=== PATIENT | male | born 1965 | race Caucasian/White ===

== ENCOUNTER 2025-01-19 07:47 | Emergency (ER) | payer OTHER, SELFPAY ==
--- NOTE | 2025-01-19 07:53 | HMH.EDGENADL ---
Discharge Plan Disposition Patient Disposition: Home, Self-Care Referrals Follow up/Referrals: Reece Swenson DO [Staff Physician] - See instructions Jairo Madera MD [Primary Care Provider] - See instructions Clinical Impressions Clinical Impression: Sprain and strain of wrist Instructions Patient Instructions: Sprain Print Language Print Language: Swedish Discharge ED Provider: Liz Davey General Adult HPI General Chief complaint: Extremity Injury, Upper Stated complaint: WC 01/19/24 1530, fell, inj rt wrist Time Seen by Provider: 01/19/25 07:53 History of Present Illness HPI narrative: Patient is a 59-year-old with past medical history significant for hypertension hyperlipidemia and depression presents to the emergency department with right wrist pain. Patient was walking on the sidewalk and tripped and fell off a curb landed on outstretched bilateral palms. Patient complaining of right wrist pain. Took ibuprofen without improvement of symptoms. Did not hit head did not lose consciousness no blood thinner use. Related Data Allergies Allergy/AdvReac Type Severity Reaction Status Date / Time No Known Allergies Allergy Verified 01/19/25 07:58 [facility] Disclaimer: The information contained in this section may have been updated after the patient was seen, as this information can be updated by other users. Social History Smoking Status: Never smoker alcohol intake: never current occupational status: employed Travel in the last 8 weeks: None ROS Obtained: Yes All systems reviewed & no additional complaints except as documented Physical Exam General General appearance: alert and in no apparent distress Head Head exam: atraumatic and normocephalic Eye Eye exam: Present PERRL and EOMI Neck Neck exam: Present full ROM; Absent tenderness Respiratory Respiratory exam: Absent respiratory distress Cardiovascular Cardiovascular exam: Present regular rate and normal rhythm Abdominal Exam Abdominal exam: Absent distention or tenderness Extremities Exam Extremities exam: Present normal inspection, full ROM, tenderness (ulnar aspect right wrist) and other (neurovascularly intact right hand); Absent joint swelling Neurological Exam Neurological exam: Present alert Medical Decision Making Medical Records Screening: Per USPSTF and CDC recommendations, given the prevalence of disease in our region, it is our hospital?s policy to screen for HIV and viral Hepatitis for all patients aged 18 and over and those with ongoing risk factors. Marlon Inquiry Pt receiving controlled substance: No Vital Signs: 01/19/25 07:54 01/19/25 07:55 Temperature 98.0 F Temperature Source Oral Pulse Rate 58 L Pulse Rate [Radial] 68 Respiratory Rate 16 Blood Pressure 140/81 Blood Pressure [Left Arm] 140/81 Blood Pressure Mean [Left Arm] 100 Blood Pressure Source [Left Arm] Automatic Cuff Blood Pressure Position [Left Arm] Sitting 02 Sat by Pulse Oximetry 93 L 97 Oxygen Delivery Method Room Air Room Air Orders (Tests/Meds): ORDERS Category Date Time Status XR forearm RT 2V Stat Exams 01/19/25 07:58 Completed XR hand RT min 3V Stat Exams 01/19/25 07:58 Completed XR wrist RT min 3V Stat Exams 01/19/25 07:58 Completed Medical Decision Narrative: In summary, this 59-year-old male presents to the emergency department today with right wrist pain. On initial evaluation patient is hemodynamically stable saturating properly on room air afebrile in no acute distress. Differential diagnosis includes but is not limited to neurovascular injury acute fracture dislocation sprain. Based on these concerns, I ordered right hand wrist forearm x-rays. XR personally interpreted demonstrates no acute fracture or dislocation On reassessment patient's pain is controlled amenable to discharge with outpatient follow-up with PCP or orthopedic surgery if pain persists of the right wrist. Of note, social determinants of health include limited access to primary care Critical Care Critical Care Time Critical Care Time: No
[2025-01-19 07:54] VITALS: BP 140/81; PULSE 58; O2SAT 93
[2025-01-19 07:55] VITALS: BP 140/81; PULSE 68; RESP 16; TEMP 36.7; O2SAT 97; BMI 34.2
--- NOTE | 2025-01-19 07:58 | XR_ITS ---
FINAL REPORT CLINICAL HISTORY: fall, pain COMPARISON: None FINDINGS: AP, oblique, and lateral views of the right wrist were obtained. There is no prior exam for comparison. There is no acute fracture or dislocation. The joint spaces are preserved. The soft tissues are normal. IMPRESSION: No acute osseous abnormality of the right wrist. If pain persists, MR is recommended. Reviewed, Interpreted and Dictated by Edie Quezada MD Transcribed by Adela Cox Authenticated and [facility]
--- NOTE | 2025-01-19 07:58 | XR_ITS ---
FINAL REPORT CLINICAL HISTORY: fall, pain COMPARISON: None FINDINGS: AP and lateral views of the right forearm are obtained. There is no prior exam for comparison. There is no acute osseous abnormality of the right forearm. The wrist and elbow are intact. The soft tissues appear normal. IMPRESSION: No acute osseous abnormality of the right forearm. Reviewed, Interpreted and Dictated by Edie Quezada MD Transcribed by Adela Cox Authenticated and [facility]
--- NOTE | 2025-01-19 07:58 | XR_ITS ---
FINAL REPORT CLINICAL HISTORY: fall, pain COMPARISON: None FINDINGS: AP, lateral and oblique views of the right hand were obtained. There is no prior exam for comparison. There is no acute fracture or dislocation. The joint spaces are preserved. The soft tissues are normal. IMPRESSION: No acute osseous abnormality of the right hand. Reviewed, Interpreted and Dictated by Edie Quezada MD Transcribed by Adela Cox Authenticated and [facility]
[2025-01-19 09:40] VITALS: BP 140/81; PULSE 68; RESP 16; TEMP 36.7; O2SAT 97
== END 2025-01-19 09:41 | disposition home or self-care (01) ==
PROVIDERS: Emergency Provider Student in an Organized Health Care Education/Training Program; PCP Internal Medicine
DX: S63.501A Unspecified sprain of right wrist, initial encounter (principal); S66.911A Strain of unspecified muscle, fascia and tendon at wrist and hand level, right hand, initial encounter; W10.1XXA Fall (on)(from) sidewalk curb, initial encounter
CPT/HCPCS: 73090; 73110; 73130; 99283

== ENCOUNTER 2025-09-21 12:36 | Emergency (ER) | payer OTHER, SELFPAY ==
[2025-09-21 12:43] VITALS: BP 158/87; PULSE 78; RESP 15; TEMP 37; O2SAT 98; BMI 34.8
--- NOTE | 2025-09-21 12:48 | ED_ITS ---
<Statement entered by Kenyon Bo MD - 09/21/25 14:47> Kenyon Bo MD: I was consulted by the LATRELL, and we discussed the complexity of the problems being addressed. I approve the treatment and management plan for this patient's care in the emergency department, thus performing a substantive portion of the medical decision making. Discharge Plan Disposition Patient Disposition: Home, Self-Care Condition: Good Referrals Follow up/Referrals: Jairo Madera MD [Primary Care Provider, Medical] - See instructions Activity Restrictions/Add. Instructions Additional Instructions/Restrictions: Please return to the emergency department with any worsening signs or symptoms. Keep the wound clean dry and covered, please return to the emergency department family physician's office or urgent care facility in the next 7 to 10 days for removal of your sutures. Clinical Impressions Clinical Impression: Laceration of left little finger Instructions Patient Instructions: DI for Laceration Repair Print Language Print Language: Estonian Discharge ED Provider: Kenyon Bo General Adult HPI General Chief complaint: Wound/Laceration Stated complaint: WC, laceration on Lt pinky Time Seen by Provider: 09/21/25 12:48 Mode of Arrival: Ambulatory Source of Information: Patient Description of Symptoms (Recalled from ER Triage Doc. by RN): patient states he cut his left pinky on sheet metal today while working. History of Present Illness HPI narrative: 60-year-old male presents to the emergency department with a left fifth digit laceration to the lateral aspect of the finger, patient states that he was working with sheet-metal , when he sat some sheet-metal down and he sliced my finger , patient denies any other acute injury, denies any crush type injury, has good range of motion, denies any numbness or tingling, has no other acute symptomatology. Patient states tetanus prophylaxis up-to-date. Patient denies any alcohol tobacco or drug use, patient has other past medical history consistent with PONCE/MDD and hypertension. Initial triage vitals are unremarkable. Please note that above description of symptoms, in this electronic medical record under categorization of recalled from ER triage doctor by RN are reflective of an initial nursing assessment, however, is not reflective of my full history and physical exam that was personally taken and clarified. Consequentially, this preceding description of symptoms, which may include the patient's categorized chief complaint in the EMR, do not reflect my personal clinical impression, and the ultimate description of history of present illness and patient stated complaints should be deferred to this section of the note. Unless stated otherwise or congruent with this section of the note, additional signs, symptoms, or incongruence should be interpreted as inaccurate with my clinical impression. Onset (ago): hour(s) Related Data Allergies Allergy/AdvReac Type Severity Reaction Status Date / Time No Known Allergies Allergy Verified 01/19/25 07:58 [facility] Disclaimer: The information contained in this section may have been updated after the patient was seen, as this information can be updated by other users. Social History (Updated 01/19/25 @ 09:38 by Liz Davey MD) Smoking Status: Current every day smoker alcohol intake: never current occupational status: employed Travel in the last 8 weeks?: None Have you lived/traveled outside US in past 30 days?: No Contact w/someone who lives/traveled outside US past 30 days?: No Exposure to someone with infectious disease in past 14 days?: No Do you have a fever (greater than 100.4 F or 38 C)?: No Have you tested positive for COVID-19?: No Exposed to someone with COVID-19 in past 14 days?: No Do you have a sore throat?: No Do you have a cough?: No Do you have any weakness?: No Do you have any diarrhea?: No Are you experiencing any unusual bleeding?: No Do you have any muscle aches/pain?: No Do you have any abdominal pain?: No Are you experiencing loss of taste or smell?: No ROS Obtained: Yes All systems reviewed & no additional complaints except as documented Physical Exam General General appearance: alert and in no apparent distress Head Head exam: atraumatic and normocephalic Eye Eye exam: Present PERRL and EOMI ENT ENT exam: Present mucous membranes moist Neck Neck exam: Present normal inspection Chest Chest inspection: Present normal inspection and symmetric chest wall rise Respiratory Respiratory exam: Present normal lung sounds bilaterally; Absent respiratory distress Cardiovascular Cardiovascular exam: Present regular rate and normal rhythm Abdominal Exam Abdominal exam: Present soft; Absent tenderness Extremities Exam Extremities exam: Present normal inspection and other (Moves extremities to command, neurovascular intact, no obvious open fractures or traumatic dislocation or deformities.) Neurological Exam Neurological exam: Present alert and oriented X3 Psychiatric Psychiatric exam: Present normal affect Skin Skin exam: Present warm, dry and other (There is a small around 1 to 1.5 cm laceration flap around the lateral aspect of the patient's left fifth digit.) Medical Decision Making Medical Records Medical records reviewed: Yes I reviewed the patient's medical records. Screening: Per USPSTF and CDC recommendations, given the prevalence of disease in our region, it is our hospital?s policy to screen for HIV and viral Hepatitis for all patients aged 18 and over and those with ongoing risk factors. Marlon Inquiry Pt receiving controlled substance: No Marlon was queried for this patient: No Vital Signs: 09/21/25 12:43 Temperature 98.6 F Temperature Source Oral Pulse Rate [Right Radial] 78 Respiratory Rate 15 Blood Pressure [Right Arm] 158/87 H Blood Pressure Mean [Right Arm] 110 Blood Pressure Source [Right Arm] Automatic Cuff Blood Pressure Position [Right Arm] Supine 02 Sat by Pulse Oximetry 98 Oxygen Delivery Method Room Air Orders (Tests/Meds): ED MEDICATIONS Discontinued Medications Generic Name Dose Route Start Last Admin Trade Name Freq PRN Reason Stop Dose Admin Lidocaine HCl 10 ml 09/21/25 12:53 09/21/25 13:09 Lidocaine 1% 10ml Mdv IJ 09/21/25 12:54 10 ml ONCE ONE Administration ORDERS Category Date Time Status HIV Combo Stat Lab 09/21/25 12:47 Ordered Hepatitis C Ab Qual. W/ RFX Stat Lab 09/21/25 12:47 Ordered Medical Decision Narrative: 60-year-old male presents to the emergency department for a left finger laceration differential diagnose include but not limited to, laceration, abrasion, among others. I discussed this patient's case with the attending physician Dr. Bo After copious irrigation of the patient's wound, with Betadine and normal saline, I utilized digital nerve block with 1% lidocaine with 5 mL, patient tolerated procedure well, I then placed 450 nonabsorbable sutures in the patient's wound. Wound margins revitalize patient tolerated procedure well no apparent complications. Patient was given strict ED return precaution, return to the emergency department or urgent care or family doctor to have sutures removed in 7 to 10 days. Patient voiced understanding and agreement with the current treatment plan/discharge plan generalized wound precautions given at discharge Procedures Laceration Laceration 1: Site: hand and upper extremity Side (If applicable): left Size (cm): 1.5 Description: flap Depth: simple, single layer Local Anesthetic: lidocaine 1% Amount of anesthesia used (mL): 5 Pre-repair: irrigated extensively, deep structures intact and wound margins revised Skin layer closed with: nylon Size (cm): 5-0 Number of sutures: 4 Technique: simple, interrupted Nerve Block Nerve Block 1: Local Anesthetic: lidocaine 1% Amount of anesthesia used (mL): 5 Side: Left Nerve Blocks: digital Procedure Successful: Yes Patient Tolerated Procedure: well and no complications Complications: none Critical Care Critical Care Time Critical Care Time: No
[2025-09-21] MEDS: LIDOCAINE 1% 10ML MDV 10 ML IJ (13:09)
--- OUTSIDE RECORDS SUMMARY | 2025-09-21 13:33 | XMS_ITS | Encounter Summary ---
Author Organization [employer] ([place], [place], [place], [place], [place]) Address [address] [place] [address] Care Team Providers Care Headline Writer Name Role Phone Unavailable Primary Care Provider Unavailabl e Encounter Details Date Type Department Care Team (Late st Contact Info) Description 05/31/2019 Transcribed Document [facility] [place] [address] ProviderPia MD [address] [place] [id number] Social History Tobacco Use Types Packs/Day Years Used Date Smoking Tobacco: Never Assessed Sex and Gender Information Value Date Recorded Sex Assigned at Not on file Legal Sex Male 6:36 PM CDT Gender Identity Not on file Sexual Orientation Not on file documented as of this encounter Miscellaneous Notes * Cerner Conversion Note - Pia ProviderMD - 05/31/2019 12:56 PM CDT [facility] Main OR PACU Summary Primary Physician: JASS YOUNGBLOOD MD-URO Finalized Date/Time: 05/31/19 14:09:01 Pt. Name: PETER CORDERO /Sex: 1965 Male Med Rec #: [id number] Physician: JASS YOUNGBLOOD MD-URO Financial #: [id number] Pt. Type: O Room/Bed: Admit/Disch: 05/31/19 09:50:00 - Institution: [facility] Main OR PACU Case Times Entry 1 In PACU I 05/31/19 13:26:00 Ready for PACU 05/31/19 13:56:00 Discharge Discharge from PACU 05/31/19 13:56:00 I Last Modified By: GIGI PERDOMO RN 05/31/19 13:58:04 [facility] Main OR PACU Case Times Audit 05/31/19 13:58:04 Grinder Set Up Operator Jig: MICK Modifier: MICK <+> 1 Ready for PACU Discharge <+> 1 Discharge from PACU I [facility] Main OR PACU Acuity Entry 1 Start Time 05/31/19 13:26:00 Stop Time 05/31/19 13:56:00 Acuity Level [facility] PACU Acuity I Last Modified By: GIGI PERDOMO RN 05/31/19 13:39:13 [facility] Main OR PACU Acuity Audit 05/31/19 13:58:12 Grinder Set Up Operator Jig: MICK Modifier: MICK <+> 1 Stop Time Finalized By: GIGI PERDOMO, RN Document Signatures Signed By: GIGI PERDOMO RN 05/31/19 14:09 Electronically signed by Ryann [facility] Conversion Inside Contractor Sales Cerner at 01/24/2023 3:46 PM CDT documented in this encounter Plan of Treatment Not on file documented as of this encounter Visit Diagnoses Not on filedocumented in this encounter
--- OUTSIDE RECORDS SUMMARY | 2025-09-21 13:33 | XMS_ITS | Referral Summary ---
Author Organization [employer] ([place], [place], [place], [place], [place]) Address [address] [place] [address] Care Team Providers Care Ornamental Painter Name Role Phone Unavailable Primary Care Provider Unavailabl e Social History Tobacco Use Types Packs/Day Years Used Date Smoking Tobacco: Never Assessed Sex and Gender Information Value Date Recorded Sex Assigned at Not on file Legal Sex Male 6:36 PM CDT Gender Identity Not on file Sexual Orientation Not on file Plan of Treatment Not on file
--- OUTSIDE RECORDS SUMMARY | 2025-09-21 13:33 | XMS_ITS | Clinical Summary ---
Author Organization [employer] ([place], [place], [place], [place], [place]) Address [address] [place] [address] Care Team Providers Care Underground Bolting Machine Operator Name Role Phone Unavailable Primary Care Provider [...]
--- OUTSIDE RECORDS SUMMARY | 2025-09-21 13:33 | XMS_ITS | Encounter Summary ---
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 Role Phone Unavailable Primary Care Provider Unavailabl e Encounter Details Date Type Department Care Team (Late st Contact Info) Description 05/31/2019 Transcribed Document [facility] [place] [address] ProviderPia MD [address] [place] [address] [id number] Social History Tobacco Use Types Packs/Day Years Used Date Smoking Tobacco: Never Assessed Sex and Gender Information Value Date Recorded Sex Assigned at Not on file Legal Sex Male 6:36 PM CDT Gender Identity Not on file Sexual Orientation Not on file documented as of this encounter Miscellaneous Notes * Cerner Conversion Note - Pia ProviderMD - 05/31/2019 2:32 PM CDT [place] [id number] PETER CORDERO :1965 Visit Time:05/31/2019 What to do next Your Diagnosis Hydrocele, unspecified, Hydrocele, unspecified Instructions From Your Care Team No strenuous activity. May shower in 3 days. Resume usual diet as tolerated. Keflex and Carolina...follow up in 1 to 2 weeks remove dressing in 48 hours. Wear scrotal support at all times Discharge Follow Up Instructions: Meds: Keflex and Carolina...follow up in 1 to 2 weeks Activity: Discharge Activity: No strenuous activities Diet: Discharge Diet: Resume usual diet as tolerated Wound/Incision Care Instructions: remove dressing in 48 hours. Wear scrotal support at all times Showering/Bathing Instructions: May shower in 3 days Driving Restriction: Do Not Drive Follow-Up Appointments Follow Up with JASS YOUNGBLOOD MD-URO When 06/09/2019 01:45 PM EDT Where: [address] [place] [address]- Medications What How Much When Instructions Next Dose losartan Every Day Take your medications faithfully. Do NOT skip medication. Do NOT stop taking medications without the direction of a physician. Carry a list of your medications with you at all times, and take this medication list with you to your first follow up visit. Report any side effects. Avoid herbal remedies unless discussed with your physician. As part of your treatment plan, your physician may have prescribed a limited course of a controlled substance. This medication may be given to help people with moderate or severe pain or for other medical conditions, but there are risks involved with treatment. Common side effects may include nausea, constipation, drowsiness, sweating, itching, dry mouth, and rash. More serious side effects may include cognitive and motor impairment, like problems with thinking, concentrating, alertness, and movement (e.g. slowed reflexes), and driving and operating heavy machinery can be dangerous. It is important for you to talk to your physician if you have these side effects or questions. These controlled substances can produce physical dependence and be habit-forming if taken for an extended period of time, which means that the body has gotten used to them and may experience withdrawal symptoms if they are abruptly stopped. Withdrawal symptoms can include runny nose, sweating, goose bumps, diarrhea, abdominal cramping, rapid heartbeat, difficulty sleeping, and nervousness. Please dispose of unused and medications per pharmacy guidance. Education Materials General Anesthesia, Adult, Care After This sheet gives you information about how to care for yourself after your procedure. Your health care provider may also give you more specific instructions. If you have problems or questions, contact your health care provider. What can I expect after the procedure? After the procedure, the following side effects are common: ??? Pain or discomfort at the IV site. ??? Nausea. ??? Vomiting. ??? Sore throat. ??? Trouble concentrating. ??? Feeling cold or chills. ??? Weak or tired. ??? Sleepiness and fatigue. ??? Soreness and body aches. These side effects can affect parts of the body that were not involved in surgery. Follow these instructions at home: For at least 24 hours after the procedure: ??? Have a responsible adult stay with you. It is important to have someone help care for you until you are awake and alert. ??? Rest as needed. ??? Do not: ? Participate in activities in which you could fall or become injured. ? Drive. ? Use heavy machinery. ? Drink alcohol. ? Take sleeping pills or medicines that cause drowsiness. ? Make important decisions or sign legal documents. ? Take care of children on your own. Eating and drinking ??? Follow any instructions from your health care provider about eating or drinking restrictions. ??? When you feel hungry, start by eating small amounts of foods that are soft and easy to digest (bland), such as toast. Gradually return to your regular diet. ??? Drink enough fluid to keep your urine pale yellow. ??? If you vomit, rehydrate by drinking water, juice, or clear broth. General instructions ??? If you have sleep apnea, surgery and certain medicines can increase your risk for breathing problems. Follow instructions from your health care provider about wearing your sleep device: ? Anytime you are sleeping, including during daytime naps. ? While taking prescription pain medicines, sleeping medicines, or medicines that make you drowsy. ??? Return to your normal activities as told by your health care provider. Ask your health care provider what activities are safe for you. ??? Take mozd-bzb-owftvwn and prescription medicines only as told by your health care provider. ??? If you smoke, do not smoke without supervision. ??? Keep all follow-up visits as told by your health care provider. This is important. Contact a health care provider if: ??? You have nausea or vomiting that does not get better with medicine. ??? You cannot eat or drink without vomiting. ??? You have pain that does not get better with medicine. ??? You are unable to pass urine. ??? You develop a skin rash. ??? You have a fever. ??? You have redness around your IV site that gets worse. Get help right away if: ??? You have difficulty breathing. ??? You have chest pain. ??? You have blood in your urine or stool, or you vomit blood. Summary ??? After the procedure, it is common to have a sore throat or nausea. It is also common to feel tired. ??? Have a responsible adult stay with you for the first 24 hours after general anesthesia. It is important to have someone help care for you until you are awake and alert. ??? When you feel hungry, start by eating small amounts of foods that are soft and easy to digest (bland), such as toast. Gradually return to your regular diet. ??? Drink enough fluid to keep your urine pale yellow. ??? Return to your normal activities as told by your health care provider. Ask your health care provider what activities are safe for you. This information is not intended to replace advice given to you by your health care provider. Make sure you discuss any questions you have with your health care provider. Document Released: 12/29/2001 Document Revised: 05/08/2018 Document Reviewed: 05/08/2018 [employer] Patient Education ?? 2019 [employer]. Hydrocelectomy, Adult, Care After This sheet gives you information about how to care for yourself after your procedure. Your health care provider may also give you more specific instructions. If you have problems or questions, contact your health care provider. What can I expect after the procedure? After your procedure, it is common to have mild discomfort, swelling, and bruising in the pouch that holds your testicles (scrotum). Follow these instructions at home: Bathing ??? Ask your health care provider when you can shower, take baths, or go swimming. ??? If you were told to wear an athletic support strap, take it off when you shower or take a bath. Incision care ??? Follow instructions from your health care provider about how to take care of your incision. Make sure you: ? Wash your hands with soap and water before you change your bandage (dressing). If soap and water are not available, use hand insole taper. ? Change your dressing as told by your health care provider. ? Leave stitches (sutures) in place. ??? Check your incision and scrotum every day for signs of infection. Check for: ? More redness, swelling, or pain. ? Blood or fluid. ? Warmth. ? Pus or a bad smell. Managing pain, stiffness, and swelling ??? If directed, apply ice to the injured area: ? Put ice in a plastic bag. ? Place a towel between your skin and the bag. ? Leave the ice on for 20 minutes, 2???3 times per day. Driving ??? Do not drive for 24 hours if you were given a sedative. ??? Do not drive or use heavy machinery while taking prescription pain medicine. ??? Ask your health care provider when it is safe to drive. Activity ??? Do not do any activities that require great strength and energy (are vigorous) for as long as told by your health care provider. ??? Return to your normal activities as told by your health care provider. Ask your health care provider what activities are safe for you. ??? Do not lift anything that is heavier than 10 lb (4.5 kg) until your health care provider says that it is safe. General instructions ??? Take tvbu-dsf-qvtnxbr and prescription medicines only as told by your health care provider. ??? Keep all follow-up visits as told by your health care provider. This is important. ??? If you were given an athletic support strap, wear it as told by your health care provider. ??? If you had a drain put in during the procedure, you will need to return for a follow-up visit to have it removed. Contact a health care provider if: ??? Your pain is not controlled with medicine. ??? You have more redness or swelling around your scrotum. ??? You have blood or fluid coming from your scrotum. ??? Your incision feels warm to the touch. ??? You have pus or a bad smell coming from your scrotum. ??? You have a fever. This information is not intended to replace advice given to you by your health care provider. Make sure you discuss any questions you have with your health care provider. Document Released: 06/12/2016 Document Revised: 06/21/2017 Document Reviewed: 06/21/2017 [employer] Patient Education ?? 2019 [employer] cephalexin (sef a JEREMIAH in) Di Reich What is the most important information I should know about cephalexin? You should not use this medicine if you are allergic to cephalexin or to similar antibiotics, such as Ceftin, Cefzil, Omnicef, and others. Tell your doctor if you are allergic to any drugs, especially penicillins or other antibiotics. What is cephalexin? Cephalexin is a cephalosporin (SEF a low spor in) antibiotic that is used to treat bacterial infections of the lungs, ear, skin, bones, bladder, and kidneys. Cephalexin is used to treat infections in adults and children who are at least 1 year old. Cephalexin may also be used for purposes not listed in this medication guide. What should I discuss with my healthcare provider before taking cephalexin? You should not use this medicine if you are allergic to cephalexin or to other cephalosporin antibiotics, such as: ?? cefaclor (Ceclor), cefadroxil (Duricef), cefazolin (Ancef, Kefzol); ?? cefdinir (Omnicef), cefditoren (Spectracef); ?? cefixime (Suprax); ?? cefotaxime (Claforan), cefotetan (Cefotan); ?? cefpodoxime (Vantin), cefprozil (Cefzil); ?? ceftaroline (Teflaro), ceftazidime (Ceptaz, Fortaz), ceftriaxone (Rocephin); ?? cefuroxime (Ceftin), and others. Tell your doctor if you have ever had: ?? an allergy to any drug (especially penicillin); ?? liver or kidney disease; or ?? intestinal problems, such as colitis. The liquid form of cephalexin may contain sugar. This may affect you if you have diabetes. Tell your doctor if you are or breast-feeding. How should I take cephalexin? Follow all directions on your prescription label and read all medication guides or instruction sheets. Use the medicine exactly as directed. Do not use cephalexin to treat any condition that has not been checked by your doctor. Shake the oral suspension (liquid) before you measure a dose. Use the dosing syringe provided, or use a medicine dose-measuring device (not a kitchen spoon). Use this medicine for the full prescribed length of time, even if your symptoms quickly improve. Skipping doses can increase your risk of infection that is resistant to medication. Cephalexin will not treat a viral infection such as the flu or a common cold. Do not share cephalexin with another person, even if they have the same symptoms you have. This medicine can affect the results of certain medical tests. Tell any doctor who treats you that you are using cephalexin. Store the tablets and capsules at room temperature away from moisture, heat, and light. Store the liquid medicine in the refrigerator. Throw away any unused liquid after 14 days. What happens if I miss a dose? Take the medicine as soon as you can, but skip the missed dose if it is almost time for your next dose. Do not take two doses at one time. What happens if I overdose? Seek emergency medical attention or call the Poison Help line at . Overdose symptoms may include nausea, vomiting, stomach pain, diarrhea, and blood in your urine. What should I avoid while taking cephalexin? Antibiotic medicines can cause diarrhea, which may be a sign of a new infection. If you have diarrhea that is watery or bloody, call your doctor before using anti-diarrhea medicine. What are the possible side effects of cephalexin? Get emergency medical help if you have signs of an allergic reaction (hives, difficult breathing, swelling in your face or throat) or a severe skin reaction (fever, sore throat, burning eyes, skin pain, red or purple skin rash with blistering and peeling). Call your doctor at once if you have: ?? severe stomach pain, diarrhea that is watery or bloody (even if it occurs months after your last dose); ?? unusual tiredness, feeling light-headed or short of breath; ?? easy bruising, unusual bleeding, purple or red spots under your skin; ?? a seizure; ?? pale skin, cold hands and feet; ?? yellowed skin, dark colored urine; ?? fever, weakness; or ?? pain in your side or lower back, painful urination. Common side effects may include: ?? diarrhea; ?? nausea, vomiting; ?? indigestion, stomach pain; or ?? vaginal itching or discharge. This is not a complete list of side effects and others may occur. Call your doctor for medical advice about side effects. You may report side effects to FDA at 9-837-GJN-0344. What other drugs will affect cephalexin? Tell your doctor about all your other medicines, especially: ?? metformin; or ?? probenecid. This list is not complete. Other drugs may affect cephalexin, including prescription and dqgo-omw-lbvhdbo medicines, vitamins, and herbal products. Not all possible drug interactions are listed here. Where can I get more information? Your pharmacist can provide more information about cephalexin. Remember, keep this and all other medicines out of the reach of children, never share your medicines with others, and use this medication only for the indication prescribed. Every effort has been made to ensure that the information provided by [employer]. ('[employer]') is accurate, up-to-date, and complete, but no guarantee is made to that effect. Drug information contained herein may be time sensitive. [employer] information has been compiled for use by healthcare practitioners and consumers in the [place] and therefore [employer] does not warrant that uses outside of the [place] are appropriate, unless specifically indicated otherwise. [employer] drug information does not endorse drugs, diagnose patients or recommend therapy. [employer] drug information is an informational resource designed to assist licensed healthcare practitioners in caring for their patients and/or to serve consumers viewing this service as a supplement to, and not a substitute for, the expertise, skill, knowledge and judgment of healthcare practitioners. The absence of a warning for a given drug or drug combination in no way should be construed to indicate that the drug or drug combination is safe, effective or appropriate for any given patient. [employer] does not assume any responsibility for any aspect of healthcare administered with the aid of information [employer] provides. The information contained herein is not intended to cover all possible uses, directions, precautions, warnings, drug interactions, allergic reactions, or adverse effects. If you have questions about the drugs you are taking, check with your doctor, nurse or pharmacist. Copyright [id number] [employer]. Version: 10.. Revision Date: 10/02/2018. acetaminophen and hydrocodone (a SEET a MIN oh fen and yanna droe KOE done) Hycet, Lorcet, Carolina, Verdrocet, Vicodin, Xodol, Zamicet What is the most important information I should know about acetaminophen and hydrocodone? MISUSE OF OPIOID MEDICINE CAN CAUSE ADDICTION, OVERDOSE, OR . Keep the medication in a place where others cannot get to it. An overdose of acetaminophen can damage your liver or cause . Call your doctor at once if you have pain in your upper stomach, loss of appetite, dark urine, or jaundice (yellowing of your skin or eyes). Taking opioid medicine during may cause life-threatening withdrawal symptoms in the . Fatal side effects can occur if you use opioid medicine with alcohol, or with other drugs that cause drowsiness or slow your breathing. Stop taking this medicine and call your doctor right away if you have skin redness or a rash that spreads and causes blistering and peeling. What is acetaminophen and hydrocodone? Hydrocodone is an opioid pain medication, sometimes called a narcotic. Acetaminophen is a less potent pain reliever that increases the effects of hydrocodone. Acetaminophen and hydrocodone is a combination medicine used to relieve moderate to severe pain. Acetaminophen and hydrocodone may also be used for purposes not listed in this medication guide. What should I discuss with my healthcare provider before taking acetaminophen and hydrocodone? You should not use this medicine if you are allergic to acetaminophen or hydrocodone, or if you have: ?? severe asthma or breathing problems; or ?? a blockage in your stomach or intestines. Tell your doctor if you have ever had: ?? liver disease; ?? a drug or alcohol addiction; ?? kidney disease; ?? a head injury or seizures; ?? urination problems; or ?? problems with your thyroid, pancreas, or gallbladder. If you use opioid medicine while you are , your baby could become dependent on the drug. This can cause life-threatening withdrawal symptoms in the baby after it is born. Babies born dependent on opioids may need medical treatment for several weeks. Do not breast-feed. This medicine can pass into breast milk and cause drowsiness, breathing problems, or in a nursing baby. How should I take acetaminophen and hydrocodone? Follow all directions on your prescription label. Never take this medicine in larger amounts, or for longer than prescribed. An overdose can damage your liver or cause . Tell your doctor if the medicine seems to stop working as well in relieving your pain. Always check your bottle to make sure you have received the correct pills (same brand and type) of medicine prescribed by your doctor. Never share this medicine with another person, especially someone with a history of drug abuse or addiction. MISUSE CAN CAUSE ADDICTION, OVERDOSE, OR . Keep the medicine in a place where others cannot get to it. Selling or giving away acetaminophen and hydrocodone is against the law. Measure liquid medicine carefully. Use the dosing syringe provided, or use a medicine dose-measuring device (not a kitchen spoon). If you need surgery or medical tests, tell the doctor ahead of time that you are using this medicine. You should not stop using this medicine suddenly. Follow your doctor's instructions about tapering your dose. Store at room temperature away from moisture and heat. Keep track of your medicine. You should be aware if anyone is using it improperly or without a prescription. Do not keep leftover opioid medication. Just one dose can cause in someone using this medicine accidentally or improperly. Ask your pharmacist where to locate a drug take-back disposal program. If there is no take-back program, flush the unused medicine down the toilet. What happens if I miss a dose? Since this medicine is used for pain, you are not likely to miss a dose. Skip any missed dose if it is almost time for your next dose. Do not use two doses at one time. What happens if I overdose? Seek emergency medical attention or call the Poison Help line at . An overdose of acetaminophen and hydrocodone can be fatal. The first signs of an acetaminophen overdose include loss of appetite, nausea, vomiting, stomach pain, sweating, and confusion or weakness. Later symptoms may include pain in your upper stomach, dark urine, and yellowing of your skin or the whites of your eyes. Overdose can also cause severe muscle weakness, pinpoint pupils, very slow breathing, extreme drowsiness, or coma. What should I avoid while taking acetaminophen and hydrocodone? Avoid driving or operating machinery until you know how this medicine will affect you. Dizziness or drowsiness can cause falls, accidents, or severe injuries. Do not drink alcohol. Dangerous side effects or could occur. Ask a doctor or pharmacist before using any other medicine that may contain acetaminophen (sometimes abbreviated as APAP). Taking certain medications together can lead to a fatal overdose. What are the possible side effects of acetaminophen and hydrocodone? Get emergency medical help if you have signs of an allergic reaction: hives; difficulty breathing; swelling of your face, lips, tongue, or throat. Opioid medicine can slow or stop your breathing, and may occur. A person caring for you should seek emergency medical attention if you have slow breathing with long pauses, blue colored lips, or if you are hard to wake up. In rare cases, acetaminophen may cause a severe skin reaction that can be fatal. This could occur even if you have taken acetaminophen in the past and had no reaction. Stop taking this medicine and call your doctor right away if you have skin redness or a rash that spreads and causes blistering and peeling. Call your doctor at once if you have: ?? noisy breathing, sighing, shallow breathing; ?? a light-headed feeling, like you might pass out; ?? liver problems--nausea, upper stomach pain, tiredness, loss of appetite, dark urine, ham-colored stools, jaundice (yellowing of the skin or eyes); or ?? low cortisol levels-- nausea, vomiting, loss of appetite, dizziness, worsening tiredness or weakness. Seek medical attention right away if you have symptoms of serotonin syndrome, such as: agitation, hallucinations, fever, sweating, shivering, fast heart rate, muscle stiffness, twitching, loss of coordination, nausea, vomiting, or diarrhea. Serious side effects may be more likely in older adults and those who are overweight, malnourished, or debilitated. Long-term use of opioid medication may affect fertility (ability to have children) in men or women. It is not known whether opioid effects on fertility are permanent. Common side effects include: ?? dizziness, drowsiness, feeling tired; ?? nausea, vomiting, stomach pain; ?? constipation; or ?? headache. This is not a complete list of side effects and others may occur. Call your doctor for medical advice about side effects. You may report side effects to FDA at 8-165-QQF-7448. What other drugs will affect acetaminophen and hydrocodone? You may have breathing problems or withdrawal symptoms if you start or stop taking certain other medicines. Tell your doctor if you also use an antibiotic, antifungal medication, heart or blood pressure medication, seizure medication, or medicine to treat HIV or hepatitis C. Opioid medication can interact with many other drugs and cause dangerous side effects or . Be sure your doctor knows if you also use: ?? cold or allergy medicines, bronchodilator asthma/COPD medication, or a diuretic ('water pill'); ?? medicines for motion sickness, irritable bowel syndrome, or overactive bladder; ?? other narcotic medications--opioid pain medicine or prescription cough medicine; ?? a sedative like Valium--diazepam, alprazolam, lorazepam, Xanax, Klonopin, Versed, and others; ?? drugs that make you sleepy or slow your breathing--a sleeping pill, muscle relaxer, medicine to treat mood disorders or mental illness; ?? drugs that affect serotonin levels in your body--a stimulant, or medicine for depression, Parkinson's disease, migraine headaches, serious infections, or nausea and vomiting. This list is not complete. Other drugs may affect acetaminophen and hydrocodone, including prescription and hxnd-gcy-ayoipkd medicines, vitamins, and herbal products. Not all possible interactions are listed here. Where can I get more information? Your doctor or pharmacist can provide more information about acetaminophen and hydrocodone. Remember, keep this and all other medicines out of the reach of children, never share your medicines with others, and use this medication only for the indication prescribed. Every effort has been made to ensure that the information provided by [employer]. ('[employer]') is accurate, up-to-date, and complete, but no guarantee is made to that effect. Drug information contained herein may be time sensitive. [employer] information has been compiled for use by healthcare practitioners and consumers in the [place] and therefore [employer] does not warrant that uses outside of the [place] are appropriate, unless specifically indicated otherwise. [employer] drug information does not endorse drugs, diagnose patients or recommend therapy. [employer] drug information is an informational resource designed to assist licensed healthcare practitioners in caring for their patients and/or to serve consumers viewing this service as a supplement to, and not a substitute for, the expertise, skill, knowledge and judgment of healthcare practitioners. The absence of a warning for a given drug or drug combination in no way should be construed to indicate that the drug or drug combination is safe, effective or appropriate for any given patient. [employer] does not assume any responsibility for any aspect of healthcare administered with the aid of information [employer] provides. The information contained herein is not intended to cover all possible uses, directions, precautions, warnings, drug interactions, allergic reactions, or adverse effects. If you have questions about the drugs you are taking, check with your doctor, nurse or pharmacist. Copyright 8062-4745 [employer]. Version: 15.02. Revision Date: 08/10/2018. Emergency Awareness and Preventative Care STROKE is an EMERGENCY Every Minute Counts Act FAST and Check for these signs: FACE Does the face look uneven? ARM Does one arm drift down? SPEECH Does their speech sound strange? TIME Call at any sign of stroke Stroke Risk Factors Atrial Fibrillation (irregular heartbeat) Diabetes Family history of stroke Heart Disease Heavy alcohol use High Blood Pressure High Cholesterol Physical inactivity and obesity Smoking Cigarette Smoking The facts are clear, cigarette smoking will shorten your life. Smoking can cause many illnesses along the way. As a healthcare provider, we recommend that you stop smoking. Assistance with quitting is available by contacting 1-720-DDZGNOW. This is a free resource providing counseling, support, and referral. Or you may contact your personal physician. [employer] Suicide Prevention Lifeline: The National Suicide Prevention Lifeline is a national network of local crisis centers that provides free and confidential emotional support to people in suicidal crisis or emotional distress 24 hours a day, 7 days a week. Don't Wait! Stop a Heart Attack Before it Starts What is a heart attack? A heart attack is damage or to a part of the heart from severely decreased or lack of blood flow to the heart. Over time, arteries can become narrow from the buildup of fat and cholesterol, which is called plaque. The plaque can rupture causing a blood clot to form. When the blood clot forms, the artery can become severely narrowed or completely blocked, causing a heart attack. Heart attack is the leading cause of in the [place]. 85% of muscle damage occurs within the first 2 hours. Delay in the recognition of heart attack symptoms increases the chances of . Know the early symptoms of a heart attack: Nausea Feeling of fullness in chest Jaw Pain Pain that travels down one or both arms Fatigue/being tired Anxiety Back Pain Chest pressure, squeezing, or discomfort Shortness of breath Sweating, or a cold sweat Feeling of impending doom There are unusual signs of a heart attack, too! Women, the elderly, and diabetics may present with atypical symptoms: Fainting/dizziness Weakness Confusion Risk Factors for a Heart Attack Some heart disease risk factors, such as age and family history, cannot be changed. Others, like smoking and lack of exercise, can be changed. Smoking High Cholesterol High Blood Pressure Family History Obesity Age Gender (Males are at higher risk) Lack of Exercise Diabetes Diet Stress Excessive Alcohol Intake If you or someone you know is experiencing the signs and symptoms of a heart attack, DON???T DELAY. Call immediately and seek help. If someone collapses, perform CPR! Do not attempt to drive if you are having symptoms of heart attack. Hands-Only CPR Why Hands-Only CPR? Hands-Only CPR has been shown to be as effective as conventional CPR for cardiac arrests that occur outside of a hospital. Survival depends on immediately receiving CPR from someone nearby. How do you perform Hands-Only CPR? There are two easy steps: Call if you see a teen or adult collapse Push hard and fast in the center of the chest at a beat of 100 beats per minute. Save a life! 4 WAYS TO GET AHEAD OF SEPSIS SEPSIS is a MEDICAL EMERGENCY. Time matters! Infections put you and your family at risk for a life-threatening condition called sepsis. Sepsis is the body's extreme response to an infection. It is life-threatening, and without timely treatment, sepsis can rapidly lead to tissue damage, organ failure, and . Sepsis happens when an infection you already have-in your skin, lungs, urinary tract or somewhere else-triggers a chain reaction throughout your body. 1 PREVENT INFECTIONS Take good care of chronic conditions. Talk to your doctor about getting the recommended vaccines. 2 PRACTICE GOOD HYGIENE Wash your hands frequently. Keep cuts or open sores clean and covered until they are healed. 3 KNOW THE SYMPTOMS Confusion or disorientation Shortness of breath High heart rate Fever, shivering, or feeling very cold Extreme pain or discomfort Clammy or sweaty skin 4 ACT FAST Get medical care IMMEDIATELY if you suspect sepsis or if you have an infection that is not getting better or is getting worse. To learn more about sepsis and how to prevent infections, visit www.cdc.gov/sepsis. Test Results Laboratory or Other Results This Visit (last charted value for your 05/31/2019 visit) No Laboratory or Other Results This Visit Patient Name:PETER CORDERO I have received this information and was given the opportunity to ask questions. Patient/Manager Utilities Name: Patient/Manager Utilities Signature: Relationship to Patient: Clinician/Hospital Manager Utilities Signature: Date: documented in this encounter Plan of Treatment Not on file documented as of this encounter Visit Diagnoses Not on filedocumented in this encounter
--- OUTSIDE RECORDS SUMMARY | 2025-09-21 13:33 | XMS_ITS | Encounter Summary ---
[facility] Address [address] [place] [id number] Care Team Providers Care Manager Outpatient Name Role Phone Jairo Madera MD Primary Care Provider +1- [phone] Reason for Visit * Reason Comments Med Refill Encounter Details Date Type Department Care Team (Late st Contact Info) Description 09/18/2021 Refill [facility] [address] [facility] [address] [place] [address] Jairo Madera MD [address] [facility] [address] [place] [address] Essential hypertension Social History Tobacco Use Types Packs/Day Years Used Date Smoking Tobacco: Former Cigarettes Q uit: 2010 Smokeless Tobacco: Current Alcohol Use Standard Drinks/Week Comments No 0 (1 standard drink = 0.6 oz pur e alcohol) PHQ-2 Answer Date Recorded PHQ-2 Score 0 08/20/2018 Sex and Gender Information Value Date Recorded Sex Assigned at Male 09/30/2023 1:00 PM EST Legal Sex Male 1:46 PM EDT Gender Identity Male 09/30/2023 1:00 PM EST Sexual Orientation Straight 09/30/2023 1: 00 PM EST documented as of this encounter Plan of Treatment Upcoming Encounters Date Type Department Care Team (Late st Contact Info) Description 01/03/2026 3:15 PM EDT Office Visit [facility] [address] [address] Jairo Madera MD [address] [facility] [address] [place], [place] [id number] documented as of this encounter Visit Diagnoses Diagnosis Essential hypertension Unspecified essential hypertension documented in this encounter Care Teams Manager Outpatient Relationship Specialty Start Date End Date Jairo Madera MD [address] [facility] [address] [place] [address] PCP - General 06/05/15 documented as of this encounter
--- OUTSIDE RECORDS SUMMARY | 2025-09-21 13:33 | XMS_ITS | Clinical Summary ---
[facility] Address [address] [place] [id number] Care Team Providers Care Process Inspector Name Role Phone Jairo Madera MD Primary Care Provider [phone]- [phone] Allergies Active Allergy Reactions Criticality Noted Date Comments Atorvastatin Myalgia 10/07/2017 Rosuvastatin Myalgia 03/08/2021 Medications amoxicillin-clavu lanate (AUGMENTIN) 875-125 MG per tablet Take 1 tablet by mouth 2 (Two) Times a Day. 20 tablet 5 Active losartan (Cozaar) 50 MG tabletIndications :Essential hypertension Take 1 tablet by mouth Daily. 90 tablet 1 5 Active rosuvastatin (Crestor) 20 MG tablet Take 1 tablet by mouth Daily. 90 tablet 1 5 Active sertraline (ZOLOFT) 100 MG tabletIndications :Reactive depression Take 1 tablet by mouth Daily. 90 tablet 1 5 Active rosuvastatin (Crestor) 20 MG tablet Take 1 tablet by mouth Daily. 90 tablet 1 5 09/13/20 25 Discontinu ed(Reorder ) sertraline (ZOLOFT) 100 MG tabletIndications :Reactive depression Take 1 tablet by mouth Daily. 90 tablet 1 5 09/13/20 25 Discontinu ed(Reorder ) losartan (Cozaar) 50 MG tabletIndications :Essential hypertension Take 1 tablet by mouth Daily. 90 tablet 09/13/20 25 Discontinu ed(Reorder ) Active Problems Problem Noted Date Diagnosed Date Cold sore 09/20/2016 Elevated fasting glucose 09/20/2016 Hypogonadism in male 09/20/2016 Benign prostatic hyperplasia 04/25/2016 Hyperlipidemia 04/25/2016 Hypertension 04/25/2016 Encounters Date Type Department Care Team Description 07/05/2025 Refill [facility] [address] [facility] [address] [place] [address] Jairo Madera MD Essential hypertension from Last 3 Months Immunizations Immunization Administration Dates Next Due Fluzone (or Fluarix & Flulaval for VFC) >6mos Hepatitis A 08/11/2018 Tdap 02/19/2023 Family History Medical History Relation Name Comments Diabetes Father Heart disease Father COPD Mother Cancer Mother lung Lung cancer Mother Arthritis Other Family Heart disease Other Family Hyperlipidemia Other Family Hypertension Other Family Lung cancer Other Family Melanoma Other Family Relation Name Status Comments Father Mother Other Family Alive Social History Tobacco Use Types Packs/Day Years Used Date Smoking Tobacco: Former Cigarettes Q uit: 2010 Passive Smoke Exposure: Past Smokeless Tobacco: Current Snuff Tobacco Cessation:Ready to Q uit: Not Asked; Counseling Given: Not Answered Alcohol Use Standard Drinks/Week Comments No 0 (1 standard drink = 0.6 oz pur e alcohol) PHQ-2 Answer Date Recorded PHQ-2 Score 0 08/20/2018 PHQ-2 Answer Date Recorded Retired PHQ-9: Brief Depression Severity Measure Score 0 11/19/2023 Sex and Gender Information Value Date Recorded Sex Assigned at Male 09/30/2023 1:00 PM EST Legal Sex Male 1:46 PM EDT Gender Identity Male 09/30/2023 1:00 PM EST Sexual Orientation Straight 09/30/2023 1: 00 PM EST Last Filed Vital Signs Vital Sign Reading Time Taken Comments Blood Pressure 134/78 09/20/2024 12:13 PM EST Pulse 84 09/20/2024 12:13 PM EST Temperature 36.7 C (98.1 F) 09/20/2024 12:13 PM EST Respiratory Rate 20 09/20/2024 12:13 PM EST Oxygen Saturation 96% 09/20/2024 12:13 PM EST Inhaled Oxygen Concentration - - Weight 117 kg (257 lb) 09/20/2024 12:13 PM EST Height 177.8 cm (5' 10 ) 09/20/2024 12:13 PM EST Body Mass Index 36.88 09/20/2024 12:13 PM EST Plan of Treatment Upcoming Encounters Date Type Department Care Team (Late st Contact Info) Description 01/03/2026 3:15 PM EDT Office Visit [facility] [address] [facility] [address] [place] [phone] Jairo Madera MD [address] [facility] [address] [place] [address] Health Maintenance Due Date Last Done Comments COLOGUARD 2009 COLON CANCER SCREENING 5 YEA R SIGMOID[address]COPY [address] COLONOGRAPHY 2009 FECAL OCCULT BLOOD TEST 2009 FIT Testing (1 year) 2009 Pneumococcal Vaccine 50+ (1 of 1 - PCV) 2014 ZOSTER VACCINE (1 of 2) 2014 COLONOSCOPY 04/12/2021 04/12/2011 COLORECTAL CANCER SCREENING 04/12/2021 ANNUAL PHYSICAL 11/19/2024 11/19/2023 INFLUENZA VACCINE 05/06/2025 07/13/2024, 07/23/2023 LIPID PANEL 09/20/2025 09/20/2024, 0802/2024, 02/18/2024, Additional history exists TDAP/TD VACCINES (2 - Td or Tdap) 02/19/2033 023 HEPATITIS C SCREENING Completed 01/14/2018, 018 Procedures Procedure Name Priority Date/Time Associated Diagnosis Comments LIPID PANEL Routine 09/20/2024 12:40 PM EST Hyperlipidemia, unspecified hyperlipidemia type HEPATITIS C ANTIBODY Routine 01/14/2018 12:04 PM EDT Physical exam HM COLONOSCOPY Routine 04/12/2011 from Last 3 Months or Most Recently Relevant to Health Maintenance Results * (ABNORMAL) Lipid Panel (09/20/2024 12:40 PM EST) Total Cholesterol 276(H) 0 - 200 mg/dL 09/21/2024 12:25 AM EST [facility] Triglycerides 277(H) 0 - 150 mg/dL 09/21/2024 12:25 AM EST [facility] HDL Cholesterol 37(L) 40 - 60 mg/dL 09/21/2024 12:25 AM EST [facility] LDL Cholesterol 185(H) 0 - 100 mg/dL 09/21/2024 12:25 AM EST [facility] VLDL Cholesterol 54(H) 5 - 40 mg/dL 09/21/2024 12:25 AM EST [facility] LDL/HDL Ratio 4.96 09/21/2024 12:25 AM [facility] Blood Structure of left upper limb / Unknown Venipuncture / Unknown 09/20/2024 12:40 PM EST 09/20/2024 12:45 PM EST [facility] - 09/21/2024 12:25 AM EST Cholesterol Reference Ranges (U.S. Department of Health and Human Services ATP III Classifications) Desirable <200 mg/dL Borderline High 200-239 mg/dL High Risk >240 mg/dL Triglyceride Reference Ranges (U.S. Department of Health and Human Services ATP III Classifications) Normal <150 mg/dL Borderline High 150-199 mg/dL High 200-499 mg/dL Very High >500 mg/dL HDL Reference Ranges (U.S. Department of Health and Human Services ATP III Classifications) Low <40 mg/dl (major risk factor for CHD) High >60 mg/dl ('negative' risk factor for CHD) LDL Reference Ranges (U.S. Department of Health and Human Services ATP III Classifications) Optimal <100 mg/dL Near Optimal 100-129 mg/dL Borderline High 130-159 mg/dL High 160-189 mg/dL Very High >189 mg/dL Jairo Madera MD LAB BLOOD ORDERABLES Final Result [facility]
[address] [place] [address], [place] [phone] * Hepatitis C Antibody (01/14/2018 12:04 PM EDT) Hepatitis C Ab Non-Reacti ve Non-Reacti ve 01/14/2018 5:14 PM EDT [facility] Blood Venipuncture / Unknown 01/14/2018 12:04 PM EDT 01/14/2018 12:04 PM EDT Jairo Madera MD LAB BLOOD ORDERABLES Final Result [facility]
[address] [place] [address], [place] [phone] * HM COLONOSCOPY (04/12/2011) HM Colonoscopy Colonoscopy Historical Provider HEALTH MAINTENANCE Final Result from Last 3 Months or Most Recently Relevant to Health Maintenance Insurance [facility] PPO Member Subscriber Plan / Payer (Ef fective 2023-Present) Name:Lencho Barrow Relation to Subscriber:Self Name:Lencho Barrow Payer ID:[id number] (NAIC) Type:Not on file Address: [facility] [id number] [place] [id number] Care Teams Process Inspector Relationship Specialty Start Date End Date Jairo Madera MD [address] [facility] [address] [place] [address] PCP - General 06/05/15
--- OUTSIDE RECORDS SUMMARY | 2025-09-21 13:33 | XMS_ITS | Encounter Summary ---
Author Organization [employer] ([place], [place], [place], [place], [place]) Address [address] [place] [address] Care Team Providers Care Human Service Technician Name Role Phone Unavailable Primary Care Provider Unavailabl e Encounter Details Date Type Department Care Team (Late st Contact Info) Description 05/31/2019 Transcribed Document [facility] [place] Family Medicine [address] [place] [address] ProviderPia MD [address] [place] [id number] Social History Tobacco Use Types Packs/Day Years Used Date Smoking Tobacco: Never Assessed Sex and Gender Information Value Date Recorded Sex Assigned at Not on file Legal Sex Male 6:36 PM CDT Gender Identity Not on file Sexual Orientation Not on file documented as of this encounter Miscellaneous Notes * [employer] Conversion Note - Historical ProviderMD - 05/31/2019 1:10 PM CDT DATE OF PROCEDURE: 05/31/2019 PREOPERATIVE DIAGNOSIS(ES): Left hydrocele. POSTOPERATIVE DIAGNOSIS(ES): Left hydrocele. PROCEDURE: Left hydrocelectomy. SURGEON: Kuldeep Huang MD PIN OR CLIP FASTENER: Cosme Craft. ANESTHESIA: General. COMPLICATIONS: None. DETAILS OF PROCEDURE: Patient was brought in the operating room, placed supine on the table and prepped and draped in usual fashion. I first examined him, had a very large left hydrocele. No evidence of any hernia communication with the inguinal canal. I made a midline incision through the scrotum, delivered the hydrocele sac and the testicle through this and then all the subcutaneous tissue off of the hydrocele sac. I opened up the hydrocele sac and everted the edges. The left epididymis however was not attached to the testicle and rather than trying to cut the hydrocele sac off, I was concerned I might injure the epididymis in the process, I elected just to clovis it and close it on the back side of the spermatic cord. We did this loosely to not cause any constriction of the blood vessels to the testicle itself. The testicle appeared to be viably put back in its proper position in the scrotum, we pexied it in place with a 2-0 chromic suture. The scrotal incision was closed in two layers using a 2-0 Vicryl for the subcutaneous tissue and a 4-0 Monocryl subcuticular for the skin. Dermabond, fluffs, and scrotal support were applied. He tolerated the procedure well and was taken back to recovery room in stable condition. Kuldeep Huang M.D. Dict: 05/31/2019 13:10:43 Trans: 05/31/2019 16:59:27 CC1: Kuldeep Huang M.D. documented in this encounter Plan of Treatment Not on file documented as of this encounter Visit Diagnoses Not on filedocumented in this encounter
--- OUTSIDE RECORDS SUMMARY | 2025-09-21 13:33 | XMS_ITS | Encounter Summary ---
Author Organization [employer] ([place], [place], [place], [place], [place]) Address [address] [place] [address] Care Team Providers Care Computer Graphic Artist Name Role Phone Unavailable Primary Care Provider Unavailabl e Encounter Details Date Type Department Care Team (Late st Contact Info) Description 05/31/2019 Transcribed Document [facility] [place] Family Medicine [facility] [place] [address] Pia Julian MD [address] [place] [id number] Social History Tobacco Use Types Packs/Day Years Used Date Smoking Tobacco: Never Assessed Sex and Gender Information Value Date Recorded Sex Assigned at Not on file Legal Sex Male 6:36 PM CDT Gender Identity Not on file Sexual Orientation Not on file documented as of this encounter Miscellaneous Notes * [employer] Conversion Note - Pia Julian MD - 05/31/2019 2:32 PM CDT Patient Education Materials Follows: General Anesthesia, Adult, Care After This sheet [...] activities are safe for you. ??? Take prao-bxz-bhaplps and prescription medicines only as told by [...] 12/29/2001 Document Revised: 05/08/2018 Document Reviewed: 05/08/2018 [employer] Patient Education ? 2019 [employer]. Urology Hydrocelectomy, Adult, Care After This sheet gives [...] and water are not available, use hand metal casket assembler. ? Change your dressing as told by [...] Leave the ice on for 20 minutes, 2?3 times per day. Driving ??? Do not [...] it is safe. General instructions ??? Take cutg-jcq-ijeaojy and prescription medicines only as told by [...] 06/12/2016 Document Revised: 06/21/2017 Document Reviewed: 06/21/2017 [employer] Interactive Patient Education ? 2019 [employer] documented in this encounter Plan of Treatment Not on file documented as of this encounter Visit Diagnoses Not on filedocumented in this encounter
--- OUTSIDE RECORDS SUMMARY | 2025-09-21 13:33 | XMS_ITS | Encounter Summary ---
Author Organization [employer] ([place], [place], [place], [place], [place]) Address [address] [place] [address] Care Team Providers Care Copyholder Name Role Phone Unavailable Primary Care Provider Unavailabl e Encounter Details Date Type Department Care Team (Late st Contact Info) Description 05/31/2019 Transcribed Document [facility] Family [place] [address] ProviderPia MD [address] [place] [id number] Social History Tobacco Use Types Packs/Day Years Used Date Smoking Tobacco: Never Assessed Sex and Gender Information Value Date Recorded Sex Assigned at Not on file Legal Sex Male 6:36 PM CDT Gender Identity Not on file Sexual Orientation Not on file documented as of this encounter Miscellaneous Notes * [employer] Conversion Note - Historical ProviderMD - 05/31/2019 2:47 PM CDT Event Note Entered On: 05/31/2019 14:53 EDT Performed On: 05/31/2019 14:47 EDT by Sallie Barrios Rn Event Note Event Date/Time : 05/31/2019 14:30 EDT Description of Event : Patient arrived from pacu and IV had infiltrated while in PACU. Pacu nurse sharla had mentioned that she was giving dilaudid and fentanyl and noticed that his hand was swelling. She discontinued the IV in the pacu and gave him oral pain medication before transferring him to postop. I contacted pharmacy and spoke with pharmacist [place] who stated that neither fentanyl or dilaudid were vasotoxic and there was nothing to be done as far as phlebitis. was notified. Sallie Barrios Rn - 05/31/2019 14:47 EDT Electronically signed by [facility] Conversion Telephone Engineer [employer] at 01/24/2023 4:00 PM CDT documented in this encounter Plan of Treatment Not on file documented as of this encounter Visit Diagnoses Not on filedocumented in this encounter
--- OUTSIDE RECORDS SUMMARY | 2025-09-21 13:33 | XMS_ITS | Encounter Summary ---
Author Organization [employer] ([place], [place], [place], [place], [place]) Address [address] [place] [address] Care Team Providers Care Machine Sand Mixer Name Role Phone Unavailable Primary Care Provider Unavailabl e Encounter Details Date Type Department Care Team (Late st Contact Info) Description 05/31/2019 Transcribed Document [facility] [place] Family Medicine [facility] [address] ProviderPia MD [address] [place] [address] [id number] Social History Tobacco Use Types Packs/Day Years Used Date Smoking Tobacco: Never Assessed Sex and Gender Information Value Date Recorded Sex Assigned at Not on file Legal Sex Male 6:36 PM CDT Gender Identity Not on file Sexual Orientation Not on file documented as of this encounter Miscellaneous Notes * Cerner Conversion Note - Pai ProviderMD - 05/31/2019 12:56 PM CDT [facility] Main OR PostOp Summary Primary Physician: JASS YOUNGBLOOD MD-URO Finalized Date/Time: 05/31/19 15:18:02 Pt. Name: PETER CORDERO /Sex: 1965 Male Med Rec #: [id number] Physician: JASS YOUNGBLOOD MD-URO Financial #: [id number] Pt. Type: O Room/Bed: Admit/Disch: 05/31/19 09:50:00 - Institution: [facility] [place] Main OR PostOp Case Times Entry 1 In PACU II 05/31/19 14:00:00 Ready for PACU II 05/31/19 15:16:00 Discharge Discharge from PACU 05/31/19 15:16:00 II Last Modified By: Sallie Barrios Rn 05/31/19 15:17:59 Finalized By: Sallie Barrios, Rn Document Signatures Signed By: Sallie Barrios Rn 05/31/19 15:18 Electronically signed by Ryann [facility] Conversion Lead Maintenance Technician Cerner at 01/24/2023 3:50 PM CDT documented in this encounter Plan of Treatment Not on file documented as of this encounter Visit Diagnoses Not on filedocumented in this encounter
--- OUTSIDE RECORDS SUMMARY | 2025-09-21 13:33 | XMS_ITS | Clinical Summary ---
Author Organization [facility] Address [address] [place] [address] Care Team Providers Care Union Carpenter Name Role Phone Pcp, No Primary Care Provider Unavailabl e Allergies Active Allergy Reactions Criticality Noted Date Comments Atorvastatin Other - please docum ent in the comment field Low 10/07/2017 Myalgia Rosuvastatin Other - please docum ent in the comment field Low 03/08/2021 Myalgia Immunizations Immunization Administration Dates Next Due Hep A, Adult 08/11/2018 Influenza, injectable, quadrivalent, preservativ e free 07/23/2023 Influenza, seasonal, injectable, preservative fr ee 07/13/2024 Tdap 02/19/2023 Social History Tobacco Use Types Packs/Day Years Used Date Smoking Tobacco: Never Assessed Sex and Gender Information Value Date Recorded Sex Assigned at Not on file Legal Sex Male 5:59 PM EDT Gender Identity Not on file Sexual Orientation Not on file Plan of Treatment Health Maintenance Due Date Last Done Comments [facility]-Depression Screening 1965 [facility]-HIV Screening 1965 [facility]-/Child/Adol SDOH Screenings 1965 [facility]- SDOH Screenings 1982 [facility]-Adult SDOH Screenings 1982 CT Colonography 2009 Colonoscopy 2009 FIT-DNA 2009 FIT 2009 FOBT 2009 Sigmoidoscopy 2009 [facility]-Colorectal Cancer Screening 2009 [facility]-Pneumococcal Vaccine: 50 + Years (1 of 1 - PCV) 2014 [facility]-Zoster Vaccines (1 of 2) 2014 [facility]-TELQH-82 Vaccine (1 - 2024- season) 2025 [facility]-Influenza Vaccine (#1) 06/06/202507/13, 07/23/2023 [facility]-DTaP,Tdap,and Td Vaccine s (2 - Td or Tdap) 02/19/2033 02/19/2023 [facility]-RSV Vaccine: 60+ Years o r (1 - 1-dose 75+ series) 2039 [facility]-Hepatitis C Screening Completed 01/14/2018 [facility]-Hepatitis A Vaccines Aged Out 08/11/2018 No longer eligible based on patient's age to complete this topic HPV Vaccines (No Doses Required) Completed [facility]-HIB Vaccines Aged Out No longer e ligible based on patient's age to complete this topic [facility]-IPV Vaccines Aged Out No longer e ligible based on patient's age to complete this topic [facility]-Rotavirus Vaccines Aged Out No lo nger eligible based on patient's age to complete this topic Insurance [facility] MEDICAID Care Teams Union Carpenter Relationship Specialty Start Date End Date Tatum, [place] [address] PCP - General Family Medicine 02/19/23
--- OUTSIDE RECORDS SUMMARY | 2025-09-21 13:33 | XMS_ITS | Encounter Summary ---
Author Organization [employer] ([place], [place], [place], [place], [place]) Address [address] [place] [address] Care Team Providers Care Forward Air Controller/Air Officer Name Role Phone Unavailable Primary Care Provider Unavailabl e Encounter Details Date Type Department Care Team (Late st Contact Info) Description 05/31/2019 Transcribed Document [facility] [place] Family Medicine [facility] [place] [address] ProviderPia MD [address] [place] [id number] Social History Tobacco Use Types Packs/Day Years Used Date Smoking Tobacco: Never Assessed Sex and Gender Information Value Date Recorded Sex Assigned at Not on file Legal Sex Male 6:36 PM CDT Gender Identity Not on file Sexual Orientation Not on file documented as of this encounter Miscellaneous Notes * Cerner Conversion Note - Pia ProviderMD - 05/31/2019 12:56 PM CDT [facility] Main OR IntraOp Summary Primary Physician: JASS YOUNGBLOOD MD-URO Finalized Date/Time: 05/31/19 13:31:14 Pt. Name: PETER CORDERO /Sex: 1965 Male Med Rec #: [id number] Physician: JASS YOUNGBLOOD MD-URO Financial #: [id number] Pt. Type: O Room/Bed: Admit/Disch: 05/31/19 09:50:00 - Institution: [facility] [place] IntraOp Case Attendance Entry 1 Entry 2 Entry 3 Case Attendee JASS YOUNGBLOOD BRUNNER, RICHARD V, Martine Diaz MD-URO RN Role Performed Surgeon/Proceduralist, METAL ROOFING MECHANIC/Nurse Eastern Philosophy Professor Layout Man, First First Time In 05/31/19 12:35:00 05/31/19 12:35:00 05/31/19 12:35:00 Time Out 05/31/19 13:30:00 05/31/19 13:30:00 05/31/19 13:30:00 Procedure Hydrocelectomy Hydrocelectomy Hydrocelectomy Other Attendee Superficial Wound Closed By: Last Modified By: Martine Shah Gillenwater, Cheryl B, Martine Shah, RN 05/31/19 13:30:54 RN 05/31/19 13:30:54 RN 05/31/19 13:30:54 Entry 4 Entry 5 Entry 6 Case Attendee Chad Craft, ART THERAPY SPECIALIST/FIELD CREW CHIEF Chad Craft, ART THERAPY SPECIALIST/FIELD CREW CHIEF Adilson Mckenna, Industrial Trainer Role Performed Scrub, Boat Canvas Maker Installer, First Scrub, First Time In 05/31/19 12:35:00 05/31/19 12:50:00 05/31/19 12:50:00 Time Out 05/31/19 12:50:00 05/31/19 13:30:00 05/31/19 13:30:00 Procedure Hydrocelectomy Hydrocelectomy Hydrocelectomy Other Attendee Superficial Wound Closed By: Last Modified By: Martine Shah Gillenwater, Cheryl B, Martine Shah, RN 05/31/19 13:02:45 RN 05/31/19 13:30:54 RN 05/31/19 13:30:54 Entry 7 Case Attendee Maryam Chavis Role Performed Other Time In 05/31/19 12:50:00 Time Out 05/31/19 13:30:00 Procedure Hydrocelectomy Other Attendee Superficial Wound Closed By: Last Modified By: Martine Shah, RN 05/31/19 13:30:54 [facility] IntraOp Case Attendance Audit 05/31/19 13:30:54 Vocational Nurse Lvn: KADEN Modifier: KADEN 1 <+> Time Out 1 <*> Procedure Hydrocelectomy 2 <+> Time Out 2 <*> Procedure Hydrocelectomy 3 <+> Time Out 3 <*> Procedure Hydrocelectomy 4 <*> Procedure Hydrocelectomy 5 <+> Time Out 5 <*> Procedure Hydrocelectomy 6 <+> Time Out 6 <*> Procedure Hydrocelectomy 7 <+> Time Out 7 <*> Procedure Hydrocelectomy 05/31/19 13:03:10 Vocational Nurse Lvn: KADEN Modifier: AGGIEB 1 <*> Procedure Hydrocelectomy 2 <+> Time In 2 <*> Procedure Hydrocelectomy 3 <+> Time In 3 <*> Procedure Hydrocelectomy 4 <+> Time In 4 <*> Procedure Hydrocelectomy 5 <*> Procedure Hydrocelectomy 6 <*> Procedure Hydrocelectomy <+> 7 Case Attendee <+> 7 Role Performed <+> 7 Time In <+> 7 Procedure [facility] IntraOp Case Times Entry 1 Patient In Room Time 05/31/19 12:35:00 Out Room Time 05/31/19 13:30:00 Anesthesia Start Time 05/31/19 12:35:00 Stop Time 05/31/19 13:30:00 Anesthesia Ready 05/31/19 12:35:00 Surgery / Procedure Times Start Time 05/31/19 12:56:00 Stop Time 05/31/19 13:22:00 Last Modified By: Martine Shah RN 05/31/19 12:57:38 [facility] IntraOp Case Times Audit 05/31/19 13:30:34 Vocational Nurse Lvn: KADEN Modifier: AGGIEB <+> 1 Out Room Time <+> 1 Stop Time <+> 1 Stop Time [facility] IntraOp Cautery Entry 1 ESU Identification Cautery Type Monopolar ESU ID Number [id number] ID Type Hospital Number Cautery Settings Cut Setting 30 Coag Setting 30 Blend Setting pure ESU Grounding Pad Ground Pad Type Adult Grounding Pad Site Right thigh Grounding Pad Site Warm, dry and intact Skin Condition Before Cautery Grounding Pad Site Unchanged, Warm, dry Skin Condition and intact After Cautery Last Modified By: Martine Shah RN 05/31/19 13:04:45 [facility] IntraOp Communication Entry 1 Communication To Family/Significant other Communication By JASS YOUNGBLOOD MD-URO Last Modified By: Martine Shah RN 05/31/19 12:59:06 [facility] IntraOp Counts Verification Entry 1 Procedure Hydrocelectomy Count Info Count Type Sponge, Sharps, Miscellaneous Counts Verification Baseline/pre-procedure Sequence Count Results Not Applicable Counts Performed By Count Performed By Maryam Chavis (Scrub) Count Performed By Martine Shah (RN) RN Last Modified By: Martine Shah RN 05/31/19 13:04:10 [facility] IntraOp Counts Final Entry 1 Procedure Hydrocelectomy Final Count Info Count Type Sponge, Sharps, Miscellaneous Counts Verification Skin Closure/end of Sequence procedure Count Results Correct, surgeon notified Counts Performed By Count Performed By Adilson Mckenna Scrub (Scrub) Tech Count Performed By Martine Shah (RN) RN Last Modified By: Martine Shah RN 05/31/19 13:12:35 [facility] IntraOp Counts Final Audit 05/31/19 13:12:35 Vocational Nurse Lvn: KADEN Modifier: KADEN 1 <*> Procedure Hydrocelectomy 1 <+> Counts Verification Sequence [facility] IntraOp Departure from OR Entry 1 Integumentary Assessment Integumentary WDL Assessment WDL Transfer/Handoff Transfer to PACU Phase I Handoff Method Bedside/Face to face Post-op Transport Stretcher/Gurney Via Patient Transport Martine Shah, Accompanied by RN, MERRITT CORNEJO V, METAL ROOFING MECHANIC Last Modified By: Martine Shah RN 05/31/19 13:05:59 [facility] IntraOp Dressing and Packing Entry 1 Wound Dressing Item 4x4's, Kerlix/Monica, Other, Skin Closure Glue Applied By Chad Craft, ART THERAPY SPECIALIST/FIELD CREW CHIEF Last Modified By: Martine Shah RN 05/31/19 13:06:42 [facility] IntraOp Fire Risk Assessment Entry 1 Fire Info Surgical Site or 0- No Incision Above the Xyphoid Open O2 Source 0- No (Mask or Cannula) Available Ignition 1- Yes (ESU, Laser, Light Source) Fire Risk 1 Assessment Score Fire Score Fire Risk Yes Assessment Complete Fire Risk Martine Shah, Assessment Verified RN By Fire Risk 05/31/19 12:35:00 Assessment Verified Date/Time Fire Risk Standard Fire Yes Safety Precautions Followed Last Modified By: Martine Shah RN 05/31/19 13:06:54 [facility] IntraOp Fire Risk Assessment Audit 05/31/19 13:12:39 Vocational Nurse Lvn: KADEN Modifier: AGGIEB <+> 1 Fire Risk Assessment Complete [facility] IntraOp General Case Crown Pouncer 1 Case Information OR OR 04 S[facility] Case Level 1 Room Verified Yes Wound Class II - Clean-Contaminated Specialty SN Urology Anesthesia Type General ASA Class 2 Diagnosis Preop Diagnosis left hydrocele Postop Diagnosis as dictated - see md notes Last Modified By: Martine Shah RN 05/31/19 13:07:24 [facility] IntraOp Intraoperative Assessment Entry 1 Handoff Method Bedside/Face to face Valid History / Yes Physical in Chart Preoperative Yes Checklist Reviewed/Evaluated Allergies Reviewed Yes Patient is Latex No Sensitive Isolation Not applicable Precautions Noted Level of WDL Consciousness (WDL = Alert, Oriented to Person, Place, and Time) Skin Assessment Yes Verified Present Upon IVs Arrival to OR Last Modified By: Martine Shah RN 05/31/19 13:08:22 [facility] IntraOp Intraoperative Equipment Entry 1 Type Monitoring Equipment Intraop Monitoring Electrocardiogram Three lead placement (ECG) Electrode Placement Blood Pressure Non-Invasive BP Device Source Blood Pressure Arm, right upper Location Pulse Oximeter Hand, left Probe Site Antiembolic Devices Antiembolic Devices Sequential compression device, knee high Antiembolic Device Bilateral Location Scopes Photo/Video Documentation Photo No Video No Intraop Equipment scds on and inflated Comment prior to induction Last Modified By: Martine Shah RN 05/31/19 13:09:11 [facility] IntraOp Patient Positioning Entry 1 Procedure Hydrocelectomy Body Position Supine Left Arm Position Secured on padded arm board Right Arm Position Secured on padded arm board Left Leg Position Uncrossed, parallel Right Leg Position Uncrossed, parallel Position Comments bilateral upper extremities positioned less than 90 degree angle Feet Uncrossed Yes Pressure Points Yes Checked Positioning Devices Arm Board, Safety Strap, Thighs, Safety Strap, Arm(s) Positioned By JASS YOUNGBLOOD MD-URO, MERRITT CORNEJO V, METAL ROOFING MECHANIC, Martine Shah RN Position Verified Positioning Yes Verified by Anesthesia Positioning Yes Verified by Surgeon Last Modified By: Martine Shah RN 05/31/19 13:13:12 [facility] IntraOp Patient Positioning Audit 05/31/19 13:13:12 Vocational Nurse Lvn: KADEN Modifier: KADEN 1 <*> Procedure Hydrocelectomy 1 <+> Positioned By [facility] IntraOp Sign In Entry 1 Patient, Site, Yes Procedure Identified Surgical Consent Yes Confirmed Relevant Surgical Yes Documents Available Surgical Site N/A Marked by person performing procedure Anesthesia Machine Yes Check Completed Medication Checks Yes Completed Allergies No Airway Difficult No Airway/Aspiration Risk Difficult Yes Airway/Aspiration Intervention Equipment Available Blood Loss Risk No Blood Loss No Intervention Equipment Prepared and Ready Blood Identifiers Not applicable Verified Per Policy Hypothermia Risk Yes Warming Measures Yes Taken Last Modified By: Martine Shah RN 05/31/19 13:11:22 [facility] Intra Op Sign Out Entry 1 RN Confirmation Surgical Yes Procedure(s) Identified Instrument, Sponge Yes and Sharps Counts Correct/Documented Equipment Problems N/A Documented Specimen Labeled N/A Correctly Urinary Catheter N/A Documented in IView Covarrubias Patient Yes Recovery Concerns Reviewed with Anesthesia Provider, Surgeon and RN Covarrubias Patient Yes Management Concerns Reviewed with Anesthesia Provider, Surgeon and RN Safety Checklist Yes Elements Complete? RN Sign Out Martine Shah, Signature RN RN Sign Out 05/31/19 13:30:00 Signature Date/Time Plan of Care Outcome - Fire Risk OUTCOME STATEMENT: Goal met Patient is free from injury related to surgical fire Plan of Care Outcome - Pt Positioning OUTCOME STATEMENT: Goal met Absence of signs and symptoms of positioning injury. Plan of Care Outcome - Skin Prep OUTCOME STATEMENT: Goal met Intraoperative care is consistent with measures to prevent infection Plan of Care Outcome - Xray/Images OUTCOME STATEMENT: Goal met Absence of observable signs or symptoms of radiation injury Plan of Care Outcome - Counts OUTCOME STATEMENT: Goal met Absence of signs and symptoms of injury related to extraneous objects Last Modified By: Martine Shah RN 05/31/19 13:11:38 [facility] Intra Op Sign Out Audit 05/31/19 13:30:53 Vocational Nurse Lvn: KADEN Modifier: KADEN <+> 1 RN Sign Out Signature Date/Time [facility] IntraOp Skin Prep Entry 1 Procedure Hydrocelectomy Prescribed Yes Pre-Surgical Prep Completed Prep Area SCROTUM/perineal Intraop Prep Integumentary WDL Assessment WDL Prep Agents Betadine solution, Betadine scrub Prep by Martine Shah RN Hair Removal Methods No hair removal performed Last Modified By: Martine Shah RN 05/31/19 13:12:03 [facility] IntraOp Surgical Procedures Entry 1 Procedure Hydrocelectomy Additional LEFT HYDROCELECTOMY Procedure Description Primary Procedure Yes Primary Surgeon JASS YOUNGBLOOD MD-URO Start 05/31/19 12:56:00 Stop 05/31/19 13:22:00 Anesthesia Type General Specialty SN Urology Wound Class II - Clean-Contaminated Last Modified By: Martine Shah RN 05/31/19 13:12:19 [facility] IntraOp Surgical Procedures Audit 05/31/19 13:30:38 Vocational Nurse Lvn: KADEN Modifier: KAEDN 1 <*> Procedure Hydrocelectomy 1 <+> Stop [facility] IntraOp Time Out Entry 1 Procedure to be Hydrocelectomy Performed Time Out Time Out Pause Time 05/31/19 12:55:00 All activity Yes suspended (unless life threatening emergency) Team Verbally Correct patient Confirms Information identity, Correct side and site are marked, Consent form is present and accurate, Agreement on the procedure to be done, Correct patient position, Relevant images/results properly labeled/appropriately displayed, Confirm antibiotics have been administered, Confirm the skin prep has dried, Confirm prosthesis/implant/devic e is present, Performed in location of procedure after prepped/draped, Performed before each procedure if multiple procedures, Reconcile problems if responses among team members differ Antibiotic Yes Prophylaxis Administered Or In Progress Within the Last 60 Minutes Beta Nati N/A Administered Venous Yes Thromboembolism Prophylaxis Required Anticipated Critical Events Surgeon None expected Anesthesia Provider Patient specific concerns Nursing Assures Sterility of instruments, Equipment concerns or issues Essential Imaging N/A Labeled and Displayed Last Modified By: Martine Shah RN 05/31/19 13:05:35 Case Comments <None> Finalized By: Martine Shah RN Document Signatures Signed By: Martine Shah RN 05/31/19 13:31 documented in this encounter Plan of Treatment Not on file documented as of this encounter Visit Diagnoses Not on filedocumented in this encounter
--- OUTSIDE RECORDS SUMMARY | 2025-09-21 13:33 | XMS_ITS | Encounter Summary ---
Author Organization [facility] Address [address] [place] [id number] Care Team Providers Care Cras Name Role Phone Jairo Madera MD Primary Care Provider [phone] Reason for Visit * Reason Onset Date Comments Med Refill 05/07/2020 Encounter Details Date Type Department Care Team (Late st Contact Info) Description 05/07/2020 Refill [facility] [address] [facility] [address] [place] [address] Jairo Madera MD [address] [facility] [address] [place] [address] Social History Tobacco Use Types Packs/Day Years [...] Description 01/03/2026 3:15 PM EDT Office Visit [facility] [address] [facility] [address] [place] [address] Jairo Madera MD [address] [facility] [address] [place] [address] documented as of this encounter Visit Diagnoses Not on filedocumented in this encounter Care Teams Cras Relationship Specialty Start Date End Date Jairo Madera MD [address] [facility] [address] [place] [address] PCP - General 06/05/15 documented as of this encounter
--- OUTSIDE RECORDS SUMMARY | 2025-09-21 13:33 | XMS_ITS | Encounter Summary ---
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 Role Phone Unavailable Primary Care Provider Unavailabl e Encounter Details Date Type Department Care Team (Late st Contact Info) Description 05/31/2019 Transcribed [place] [facility] [place] [facility] [place] [address] ProviderPia MD [address] [place] [address] [id number] Social History Tobacco Use Types Packs/Day Years Used Date Smoking Tobacco: Never Assessed Sex and Gender Information Value Date Recorded Sex Assigned at Not on file Legal Sex Male 6:36 PM CDT Gender Identity Not on file Sexual Orientation Not on file documented as of this encounter Miscellaneous Notes * Cerner Conversion Note - Historical ProviderMD - 05/31/2019 11:07 AM CDT Pre Procedure Adult Entered On: 05/31/2019 11:11 EDT Performed On: 05/31/2019 11:07 EDT by Jennifer Steinberg Rn Height and Weight, Clinical Dosing Height Source : Stated Height Entry Format : [place] Height, Feet : 5 ft(Converted to: 152 cm, 60 Inch) Height, Inches : 11 Inch(Converted to: 0 ft 11 Inch, 27.94 cm) Clinical Height : 180.34 cm Weight Source : Standing scale Weight Entry Format : [place] Clinical Dosing Weight : 109 kg Weight, Pounds : 239.8 lb Body Surface Area (BSA) : 2.28 m2 Body Mass Index : 33.5 kg/m2 (HI) [place] Body Weight : 74 kg Jennifer Steinberg Rn - 05/31/2019 11:07 EDT Health Histories Smoking Status : Never (less than 100 in lifetime; none in last 30 days) Smokeless Tobacco Status : Never Jennifer Steinberg Rn - 05/31/2019 11:07 EDT Social History (As Of: 05/31/2019 11:11:32 EDT) Infectious Disease History Infectious Disease History : C-Difficile, Influenza Fever/Chills Last 48 Hours : No Travel To Regions with Travel Advisories : No Travel Outside [place] Within Last 30 Days : No Contact With Traveler to Advisory Region : No Tuberculosis Symptoms : None Jennifer Steinberg Rn - 05/31/2019 11:07 EDT Anesthesia/Transfusion History Family History of Anesthesia Reaction : No prior transfusion(s) Transfusion History : No prior anesthesia Family History of Anesthesia Reaction : None Jennifer Steinberg Rn - 05/31/2019 11:07 EDT Functional Assessment Living Situation : Home Patient Lives With : Spouse Current Home Treatments : None Jennifer Steinberg Rn - 05/31/2019 11:07 EDT Psychosocial History Currently in Unsafe Situation : No Tried to Harm Yourself in the Past? : No Thoughts of Harming/Killing Yourself : No Jennifer Steinberg Rn - 05/31/2019 11:07 EDT Advance Directive Patient has Advance Directive *Q : No, patient refuses Advance Directive information Jennifer Steinberg Rn - 05/31/2019 11:07 EDT Spiritual/Cultural Needs Significant Loss/Crisis in Past 3 Years : No Significant Distress/Coping/Need Support : No Any Spiritual/Cultural Needs or Requests : No Jennifer Steinberg Rn - 05/31/2019 11:07 EDT Teaching/Learning Assessment Barriers To Learning : None evident Jennifer Steinberg Rn - 05/31/2019 11:07 EDT Education Topics, Periop Preadmission Perioperative Education Grid IV's : Verbalizes understanding NPO Status/Directions : Verbalizes understanding Jennifer Steinberg Rn - 05/31/2019 11:07 EDT General Info Want Family/Rep/Phys Notified of Admit : No Emergency Contact #1 : miley arias Emergency Contact #1 Emergency Contact #1 Relationship : Emergency Contact #2 : . Emergency Contact #2 Phone Number : .. Emergency Contact #2 Relationship : . Primary Language : Burkinan Communication Barrier : None Jennifer Steinberg Rn - 05/31/2019 11:07 EDT Vital Measurements Temperature Source : Oral Temperature Mode : Fahrenheit Temperature, Fahrenheit : 98.2 Deg F Clinical Temperature, C : 36.8 Deg C Peripheral Pulse Rate : 64 bpm Pulse Rhythm : Regular Respiratory Rate : 16 Breaths/Min Systolic Blood Pressure : 138 mmHg Diastolic Blood Pressure : 83 mmHg Jennifer Steinberg Rn - 05/31/2019 11:07 EDT Sleep Apnea Risk Assmt Hx of Obstructive Sleep Apnea Diagnosis : No Snore Loudly : No Tired, Fatigued, or Sleepy During Day : No Observed Stopping Breathing During Sleep : No Have/Are Being Treated for Hypertension : No BMI Greater Than 35 kg/m2 : No Age over 50 Years Old : Yes Neck Circumference Greater Than 40 cm : No Gender Male : Yes STOP-BANG Sleep Apnea Risk Level Score : 2 Jennifer Steinberg Rn - 05/31/2019 11:07 EDT Tyson Scale Tyson Sensory Perception : No impairment Tyson Moisture : Rarely moist Tyson Activity : Walks frequently Tyson Mobility : No limitation Tyson Nutrition : Excellent Tyson Friction and Shear : No apparent problem Tyson Score : 23 Jennifer Steinberg Rn - 05/31/2019 11:07 EDT Oxygen Therapy Oxygen Therapy Mode : Room air Jennifer Steinberg Rn - 05/31/2019 11:07 EDT Fall Risk Scales ABCs Fall Injury Risk Identification : None MAYS Hx Falls Immediate/Within 3 Months : No Mays Secondary Diagnosis : No MAYS Use of Ambulatory Aid : None MAYS IV Therapy or IV Access : Yes Mays Gait/Transferring : Normal, bedrest, immobile Mays Mental Status : Oriented to own ability Mays Fall Risk Score : 20 MAYS Fall Scale Risk Level : 0-24 Low Risk Baxter Fall Interventions : Adequate lighting, Bed in low position, Call device within reach Jennifer Steinberg Rn - 05/31/2019 11:07 EDT Valuables and Belongings Valuables and Belongings : Clothing Clothing : Common streetwear Clothing Disposition : With family Jennifer Steinberg Rn - 05/31/2019 11:07 EDT documented in this encounter Plan of Treatment Not on file documented as of this encounter Visit Diagnoses Not on filedocumented in this encounter
[2025-09-21 14:41] VITALS: BP 160/78; PULSE 80; RESP 16; TEMP 36.7; O2SAT 99
== END 2025-09-21 14:42 | disposition home or self-care (01) ==
PROVIDERS: Emergency Provider Student in an Organized Health Care Education/Training Program; PCP Internal Medicine
DX: S61.217A Laceration without foreign body of left little finger without damage to nail, initial encounter (principal); W26.8XXA Contact with other sharp object(s), not elsewhere classified, initial encounter
CPT/HCPCS: 12001; 99282; J2003